=== PATIENT | female | born 1970 | race Caucasian/White ===

== ENCOUNTER → 2016-11-01 | Outpatient (CLI) | payer OTHER ==
[~2016-11-01] MED LIST: ASPI-390 PO; CLR10 PO; OPTIRAY 320 IV PRN; PHEN-601 PO
--- NOTE | 2016-11-01 15:49 | DIAGNOSTIC IMAGING REPORT ---
ABD/PELVIS IV AND ORAL CONT CLINICAL HISTORY: 46 years-old Female presenting with BREAST CANCER. TECHNIQUE: Multidetector CT of the abdomen and pelvis was performed after the administration of oral and intravenous contrast. IV contrast: 120 mL of Optiray 320. A dose lowering technique was used consistent with the principles of ALARA (as low as reasonably achievable). COMPARISON: None. CT DOSE (mGy.cm): The estimated cumulative dose is 1496.81 inclusive of the chest CT. FINDINGS: Dewatering Filtering Supervisor topogram: Right internal jugular Mediport noted. Lung bases: Minimal subpleural reticulation in the dependent lower lobes. Heart size normal. No pericardial or pleural effusion. Liver: Normal morphology. Punctate hypodensity in the right hepatic lobe (series 5 image 26), too small to characterize but likely cyst. No suspicious liver lesion. Patent hepatic vasculature. Biliary: No intrahepatic or extrahepatic biliary ductal dilatation. Normal gallbladder. Pancreas: Normal. Spleen: Normal. Splenule noted. Adrenal glands: Normal. Kidneys and ureters: Cortical defect at the lateral interpolar region of the right kidney, possibly postsurgical or from prior infarct, infection, or trauma. No renal calculus. No hydronephrosis. Ureters normal. Gastrointestinal tract: Normal. No bowel obstruction. Peritoneal cavity: No free fluid or intraperitoneal gas. Bladder: Incompletely evaluated secondary to underdistention. Pelvic organs: Uterus with multiple the both in cysts in the cervix. Ovaries normal. Vasculature: Atherosclerosis of the normal caliber abdominal aorta. IVC patent. Lymph nodes: No enlarged lymph nodes in the abdomen or pelvis. Abdominal wall: Diastases of the abdominis rectus. Small fat-containing umbilical hernia. Musculoskeletal: Anterolisthesis of L5 on S1 secondary to bilateral pars defects of L5. No destructive osseous lesion. IMPRESSION: 1. No acute intra-abdominal pathology. No evidence of metastatic disease in the abdomen or pelvis. Electronically signed by: Leonel Erazo M.D. 11/01/2016 3:48 PM Dictated Date/Time: 11/01/2016 3:42 PM
--- NOTE | 2016-11-02 07:29 | DIAGNOSTIC IMAGING REPORT ---
CT OF THE CHEST WITH IV CONTRAST CLINICAL HISTORY: Breast cancer. COMPARISON STUDY: No previous studies for comparison. TECHNIQUE: Following IV administration of 120 mL of Optiray-320, helical axial images of the chest were obtained. Sagittal and coronal reconstructions were viewed as well as maximal intensity projections on an independent 3-D workstation. A dose lowering technique was utilized adhering to the principles of ALARA. CT DOSE: 1496.81 mGycm FINDINGS: No enlarged axillary, mediastinal or hilar lymph nodes are present. The size of the heart is normal. There is no pericardial effusion. The patient is status post left mastectomy. No abnormalities are identified within the mastectomy bed. There is no pneumothorax or pleural effusion. Note is made of an irregular 3.2 x 1.7 cm right lower lobe irregular opacity with volume loss and architectural distortion. 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 No suspicious osseous lesions are present. The abdomen and pelvis will be reported separately. IMPRESSION: 1. No thoracic lymphadenopathy. Expected findings following left mastectomy. 2. 3.2 x 1.7 cm irregular right lower lobe opacity with volume loss and architectural distortion. This finding is indeterminate and correlation with prior imaging studies, if available, would be of benefit. Metastatic disease is considered very unlikely. This could reflect an infectious process, atelectasis or a primary lung neoplasm. In the absence of prior imaging studies, a follow-up chest CT in 3 months is recommended. Electronically signed by: Fernando Stein M.D. 11/02/2016 7:27 AM Dictated Date/Time: 11/01/2016 3:45 PM
== END | disposition home or self-care (01) ==
LOC: C.CTS 13:28
PROVIDERS: ATTEND Internal Medicine Hematology & Oncology
DX: C50.919 Malignant neoplasm of unspecified site of unspecified female breast (principal)

== ENCOUNTER → 2016-11-22 | Outpatient (CLI) | payer OTHER ==
[2016-11-21 15:51] VITALS: Ht 152.4 cm; Wt 93.2 kg
[~2016-11-22] VITALS: Ht 152.4 cm; Wt 93.2 kg
[~2016-11-22] MED LIST changes: +LACTATED RINGER'S 1000ML 1,000 ML IV SCH; -OPTIRAY 320 IV PRN
== END | disposition home or self-care (01) ==
LOC: C.CPL 08:00 → EDSTATUS 11-29 12:00
PROVIDERS: ATTEND Surgery
DX: Z01.810 Encounter for preprocedural cardiovascular examination (principal); Z01.812 Encounter for preprocedural laboratory examination; R94.31 Abnormal electrocardiogram [ECG] [EKG]

== ENCOUNTER → 2016-12-03 | Outpatient (CLI) | payer OTHER ==
[~2016-12-03] MED LIST changes: -LACTATED RINGER'S 1000ML 1,000 ML IV SCH
--- NOTE | 2016-12-03 10:08 | DIAGNOSTIC IMAGING REPORT ---
PET/CT SKULL-THIGH CLINICAL HISTORY: PULMONARY NODULE history of breast carcinoma and renal cell carcinoma COMPARISON STUDY: Chest CT dated 11/01/2016 FINDINGS: The patient was injected with 15.2 mCi of F 18 labeled FDG. Following the standard induction phase, PET/CT scanning is performed from the skull base to the upper thigh region. Within the neck, there is mild asymmetric tonsillar activity, a finding of questionable clinical significance. There is a focus of minimal increased FDG activity with thin the right posterior triangle. There is no corresponding CT nodule. Within the chest, there is no pathologic anastasia activity. There are postsurgical changes of a left mastectomy. There is a 37 mm right infrahilar airspace opacity. This remain similar in appearance to the prior October CT scan. This focus is not particularly FDG avid with SUV maximum of 2.0. Within the abdomen there is physiologic urinary tract and bowel activity. There is no pathologic adrenal gland activity. There is no pathologic hepatic activity. There is no pathologic anastasia activity. There is no pathologic skeletal activity. There is nonspecific endometrial activity which can be physiologic. Correlation with pelvic ultrasonography could be obtained if deemed clinically appropriate IMPRESSION: 1. Persistent 37 mm right infrahilar pulmonary airspace opacity. FDG uptake does not exceed background 2. No evidence of pathologic anastasia activity 3. Nonspecific endometrial uptake which potentially is physiologic Electronically signed by: Robert Juares M.D. 12/03/2016 10:07 AM Dictated Date/Time: 12/03/2016 9:52 AM
== END | disposition home or self-care (01) ==
LOC: C.PET 07:23
PROVIDERS: ATTEND Surgery
DX: C50.919 Malignant neoplasm of unspecified site of unspecified female breast (principal)

== ENCOUNTER → 2017-04-09 | Outpatient (CLI) | payer OTHER ==
[~2017-04-09] MED LIST changes: +CEPH500C2 PO; +OPTIRAY 320 IV PRN
--- NOTE | 2017-04-09 13:37 | DIAGNOSTIC IMAGING REPORT ---
CT OF THE CHEST WITH IV CONTRAST CLINICAL HISTORY: Breast cancer. COMPARISON STUDY: Chest CT November 01, 2016 and PET/CT December 03, 2016. TECHNIQUE: Following IV administration of 119 mL of Optiray-320, helical axial images of the chest were obtained. Sagittal and coronal reconstructions were viewed as well as maximal intensity projections on an independent 3-D workstation. A dose lowering technique was utilized adhering to the principles of ALARA. CT DOSE: 567.80 mGycm FINDINGS: No enlarged axillary, mediastinal or hilar lymph nodes are noted. The patient is status post left mastectomy. A right internal jugular Tbzjfp-k-Lmso is in place. The size of the heart is normal and there is no pericardial effusion. There is no consolidation to suggest pneumonia. An irregular 2.9 x 1.7 cm right lower lobe opacity with volume loss is similar to exam of November 01, 2016 and PET/CT of December 03, 2016. No definite change is noted since that exam. No additional suspicious findings within the lungs are noted. There are no suspicious osseous lesions. No pneumothorax or pleural effusion is present. Visualized portions of the upper abdomen are unremarkable. IMPRESSION: 1. No significant change in the 2.9 x 1.7 cm irregular lower lobe opacity with volume loss and architectural distortion since initial CT of November 01, 2016. Despite stability, a neoplasm such as lung adenocarcinoma is the diagnosis of exclusion. Scarring could appear similar. The appearance is not typical for metastatic disease. If not already performed, consideration could be given to further evaluation with bronchoscopy for tissue sampling. 2. Status post left mastectomy. No thoracic lymphadenopathy. Electronically signed by: Fernando Stein M.D. 04/09/2017 1:36 PM Dictated Date/Time: 04/09/2017 1:16 PM
== END | disposition home or self-care (01) ==
LOC: C.CTS 12:53
PROVIDERS: ATTEND Internal Medicine Hematology & Oncology
DX: C50.912 Malignant neoplasm of unspecified site of left female breast (principal); Z90.12 Acquired absence of left breast and nipple

== ENCOUNTER 2017-04-25 14:16 | Emergency (ER) | payer OTHER ==
[~2017-04-25] VITALS: Ht 152.4 cm; Wt 94.0 kg
[~2017-04-25 14:16] MED LIST changes: -ASPI-390 PO; -CEPH500C2 PO; -CLR10 PO; -OPTIRAY 320 IV PRN
[2017-04-25 14:28] VITALS: TEMP 37; Ht 152.4 cm; Wt 94.0 kg
--- NOTE | 2017-04-25 15:15 | DIAGNOSTIC IMAGING REPORT ---
L TOE(S) MIN 2 VIEWS CLINICAL HISTORY: left great toe injury trauma. Pain. COMPARISON: None. DISCUSSION: The bones and joint spaces appear intact. There is no evidence of fracture, dislocation or bony disease. Moderate soft tissue edematous change about the distal phalanx of left great toe. Possible tiny cortical avulsion base distal phalanx. IMPRESSION: 1. Soft tissue edema about the distal phalanx left great toe. 2. Tiny cortical avulsion base distal phalanx seen only on the AP projection. The above report was generated using voice recognition software. It may contain grammatical, syntax or spelling errors. Electronically signed by: Matthew Mejía M.D. 04/25/2017 3:14 PM Dictated Date/Time: 04/25/2017 3:12 PM
--- NOTE | 2017-04-25 15:27 | EMERGENCY ROOM VISIT NOTE ---
ED Visit Note First contact with patient: 14:41 CHIEF COMPLAINT: Left great toe injury HISTORY OF PRESENT ILLNESS: This 47-year-old female presents the ER with chief complaint of left toe injury. The patient states last night she stubbed her toe and now states that it hurts. The patient states that she does have an abnormal toenail there since it fell off when she had chemotherapy several years ago. She states it does not grow normally. She states the toenail is very curved. REVIEW OF SYSTEMS: 6 system review was performed and was negative unless stated otherwise in history of present illness. PMH: The patient is healthy; breast, lung and kidney cancer, appendectomy, mastectomy, SOCIAL HISTORY: Patient lives alone. The patient denies any tobacco or alcohol use. PHYSICAL EXAM: Vital Signs: Were reviewed Reviewed Nurse's notes. GENERAL: 47- year-old white female appears in no acute distress. MENTAL Status: Alert and oriented 3. LEFT GREAT TOE: No gross bony deformity noted. There is erythema noted over the distal phalanx. She has tenderness to palpation over this area. The toenail is very convex and second distally. She is tender to palpation over the lateral border of the nail .there is no purulent drainage. EMERGENCY DEPARTMENT COURSE: The patient was evaluated. X-ray of the left great toe was ordered interpreted by the radiologist and myself. DIAGNOSTICS: Patient Name: TRACI BALDERAS Unit Number: [id number] Dictated: 04/25/171511 Transcribed: 04/25/17 151 MS Printed Date/Time: [~ rep prt dt]/[~ rep prt tm] [~ rep ct labl] - [~ rep ct ivnm] [facility] Radiology Department [place], [place] [id number] Dictated: 04/25/171511 Transcribed: 04/25/17 1512 MS Printed Date/Time: [~ rep prt dt]/[~ rep prt tm] [~ rep ct labl] - [~ rep ct ivnm] [~ rep ct add3]] L TOE(S) MIN 2 VIEWS CLINICAL HISTORY: left great toe injury trauma. Pain. COMPARISON: None. DISCUSSION: The bones and joint spaces appear intact. There is no evidence of fracture, dislocation or bony disease. Moderate soft tissue edematous change about the distal phalanx of left great toe. Possible tiny cortical avulsion base distal phalanx. IMPRESSION: 1. Soft tissue edema about the distal phalanx left great toe. 2. Tiny cortical avulsion base distal phalanx seen only on the AP projection. The above report was generated using voice recognition software. It may contain grammatical, syntax or spelling errors. Electronically signed by: Matthew Mejía M.D. 04/25/2017 3:14 PM Dictated Date/Time: 04/25/2017 3:12 PM The status of this report is Signed. Draft = Not yet reviewed or approved by Radiologist. Signed = Reviewed and approved by Radiologist. <AttendingPhy></AttendingPhy> <FamilyPhy>No Doctor, Assigned</FamilyPhy> < PrimaryPhy>No Doctor, Assigned</PrimaryPhy> <UnitNumber>[id number]</UnitNumber> <VisitNumber>[id number]</VisitNumber> <PatientName>TRACI BALDERAS</ PatientName> <DateOfBirth>1970</DateOfBirth> <Location>[facility]</Location> < ServiceDate>04/25/17</ServiceDate> <MNE>ESINDI</MNE> <OrderingPhy>Nella Mejía PA-C</OrderingPhy> <OrderingPhyMNE>f rep ord dr goldberg</OrderingPhyMNE> < DictatingPhyMNE>f rep dict dr goldberg</DictatingPhyMNE> <CCListMNE>f rep ct mne</ CCListMNE> <AdmittingPhyMNE>f pt admit dr goldberg</AdmittingPhyMNE> <AttendingPhyMNE >f pt attend dr goldberg</AttendingPhyMNE> <ConsultingPhyMNE>f pt consult dr goldberg</ConsultingPhyMNE> <FamilyPhyMNE>f pt fam dr goldberg</FamilyPhyMNE> <OtherPhyMNE>f pt other dr goldberg</OtherPhyMNE> < PrimaryPhyMNE>f pt prim care dr goldberg</PrimaryPhyMNE> <ReferringPhyMNE>f pt referring dr goldberg</ReferringPhyMNE> The patient was informed of the findings. The patient was placed in a postop shoe. The patient was discharged home in stable condition. DIAGNOSIS: Avulsion fracture left right toe/early paronychia DISCHARGE INSTRUCTIONS & TREATMENT: Ibuprofen 600 mg every 6 hours with food for pain. Take Keflex as prescribed. Make sure you try to elevate the corner of that nail so it doesn't grow into the skin. Wear postop shoe for 2 weeks. Then try normal shoes. If it is still bothersome return to the postop shoe for an additional 2 weeks. If symptoms persist or worsen, follow-up with your family doctor. Current/Historical Medications Scheduled PRN Sdjdpxw-Hcaskhehdsozm-Mxmobbqe (Excedrin Migraine), 2 TABS PO DAILY PRN for Migraine Loratadine (Claritin), 10 MG PO QAM PRN for Allergy Symptoms Allergies Coded Allergies: NO KNOWN DRUG ALLERGIES (Verified Allergy, Unknown, NKDA, 11/21/16) Uncoded Allergies: SEASONAL (Allergy, Unknown, SNEEZING, RUNNY NOSE, 11/21/16) Vital Signs Date Time Temp Pulse Resp B/P (MAP) Pulse Ox O2 Delivery O2 Flow Rate FiO2 04/25/17 14:28 37.0 77 18 149/91 96 Room Air Departure Information Referrals No Doctor, Assigned (PCP) Patient Instructions [facility]
[2017-04-25] MEDS ORDERED: CEPH500C2 PO (15:29)
[2017-04-25 15:38] VITALS: BP 111/81; PULSE 85; O2SAT 97
[2017-04-25] MEDS ORDERED: CLR10 PO (16:07)
[2017-04-25] MEDS ORDERED: ASPI-390 PO (16:07)
== END 2017-04-25 15:39 | disposition home or self-care (01) ==
LOC: C.EDB 14:18 → C.EDD 15:39
DX: S92.425A Nondisplaced fracture of distal phalanx of left great toe, initial encounter for closed fracture (principal); W22.09XA Striking against other stationary object, initial encounter; Z90.10 Acquired absence of unspecified breast and nipple; Z85.3 Personal history of malignant neoplasm of breast; Z85.118 Personal history of other malignant neoplasm of bronchus and lung; Z85.528 Personal history of other malignant neoplasm of kidney

== ENCOUNTER → 2017-07-09 | Outpatient (CLI) | payer OTHER ==
[~2017-07-09] MED LIST changes: +ASPI-390 PO; +CEPH500C2 PO; +CLR10 PO; +OPTIRAY 320 IV PRN; -PHEN-601 PO
--- NOTE | 2017-07-09 10:50 | DIAGNOSTIC IMAGING REPORT ---
CT SCAN OF THE CHEST WITH IV CONTRAST CLINICAL HISTORY: Breast cancer. COMPARISON STUDY: Chest CT scans dated 04/09/2017 and 11/01/2016. TECHNIQUE: Following the IV administration of 94 cc of Optiray 320, CT scan of the thorax was performed from the thoracic inlet to the upper abdomen. Images are reviewed in the axial, sagittal, and coronal planes. IV contrast was administered without complication. A dose lowering technique was utilized adhering to the principles of ALARA. CT DOSE: 568.68 mGy.cm FINDINGS: Thyroid: Imaged portions of the thyroid gland are normal in size and attenuation. Thoracic aorta: The thoracic aorta is normal in caliber and demonstrates 4-vessel variant arch anatomy. No dissection is seen. A right internal jugular central venous infusion port is in place. Pulmonary vasculature: The pulmonary trunk is normal in caliber. There are no filling defects identified in the central pulmonary vessels to indicate pulmonary embolus. Note that this examination was not protocoled for evaluation of the pulmonary arteries. Heart: The heart is top normal in size and without pericardial effusion. Lungs and pleural spaces: Mild emphysematous change is noted. No airspace consolidation or pleural effusion is identified. The trachea and central airways are clear. Again seen is an irregular right infrahilar pulmonary lesion which measures 3.6 x 1.9 cm as seen on image #152. There is surrounding architectural distortion/volume loss. No new pulmonary lesion is identified. Mediastinum: There is no mediastinal lymphadenopathy. Jodi: Clear. Axillae: There is no axillary lymphadenopathy. Upper abdomen: Partially visualized upper abdominal viscera is within normal limits. Skeletal structures: No lytic or blastic bony lesions are seen. Soft tissues: The left breast is surgically absent. IMPRESSION: 1. There is no convincing evidence of intrathoracic metastatic disease. 2. There is unchanged appearance of a 3.6 x 1.9 cm irregular soft tissue lesion in the right infrahilar region. Although this could potentially represent scar, pulmonary neoplasm remains the diagnosis of exclusion. Bronchoscopy could be considered for further assessment. At a minimum, continued CT follow-up is recommended. 3. No new pulmonary lesion is identified. 4. Mild emphysema. Electronically signed by: Jaspal Jones M.D. 07/09/2017 10:49 AM Dictated Date/Time: 07/09/2017 10:40 AM
== END | disposition home or self-care (01) ==
LOC: C.CTS 09:40
PROVIDERS: ATTEND Internal Medicine Hematology & Oncology
DX: C50.912 Malignant neoplasm of unspecified site of left female breast (principal)

== ENCOUNTER → 2017-08-21 | Day surgery (SDC) | payer OTHER ==
[2017-08-09 13:39] VITALS: BMI 40.0
[~2017-08-21] VITALS: Ht 152.4 cm; Wt 93.2 kg
[~2017-08-21] MED LIST changes: +ATROPINE SULFATE 0.1 MG/ML 5ML SYR IV PRN; +BUPIVACAINE 0.5 % 5 MG/1 ML MPF 30ML VIAL ONE; +CEFAZOLIN 2000MG IV PUSH 15 ML IV SCH; -CEPH500C2 PO; +ERGO500037 PO; +EpHEDrine SULFATE 50MG/5ML SYR ONE; +EpHEDrine SULFATE INJ 50 MG/ML AMP IV PRN; +FENTANYL CITRATE INJ 50 MCG/1 ML 2 ML VIAL IV PRN; +FENTANYL CITRATE INJ 50 MCG/1 ML 2 ML VIAL ONE; +GLYCOPYRROLATE INJ 0.2 MG/ML VIAL ONE; +KETOROLAC TROMETHAMINE 30 MG/ML VIAL ONE; +LACTATED RINGER'S 1000ML 1,000 ML IV SCH; +LIDOCAINE HCL 2% 2 ML VIAL (20MG/ML) ONE; +LIDOCAINE/EPINEPHRINE 1% 20 ML VIAL ONE; +MIDAZOLAM HCL 1 MG/ML 2ML VIAL ONE; +NEOSTIGMINE METHYLSULFATE 5 MG/5 ML SYR ONE; +ONDANSETRON INJ 2 MG/ML 2 ML VIAL IV PRN; +ONDANSETRON INJ 2 MG/ML 2 ML VIAL ONE; -OPTIRAY 320 IV PRN; +OXYCODONE/ACETAMINOPHEN 5-325 TAB PO PRN; +PROPOFOL IV EMULSION 10 MG/ML 20 ML VIAL ONE; +ROCURONIUM BROMIDE 10 MG/ML 5 ML VIAL ONE; +SODIUM CHLORIDE 0.9% 1000ML 1,000 ML IV SCH
[2017-08-21 07:13] VITALS: BP 119/79; PULSE 75; TEMP 36.6; O2SAT 98; Ht 152.4 cm; Wt 93.2 kg
--- NOTE | 2017-08-21 08:59 | History & Physical Bridge Note ---
H&P Re-Evaluation Bridge Note: I have examined the patient, reviewed the History & Physical and in the interval since the performance of the History & Physical I have noted the following changes of clinical significance: No changes noted
--- NOTE | 2017-08-21 09:48 | Discharge Instructions ---
Discharge Instructions Date of Service August 21, 2017. Visit Reason for Visit: Breast Cancer, Port-A-Cath In Place Discharge Discharge Diagnosis / Problem: A-port removal Discharge Goals Goal(s): Therapeutic intervention Activity Recommendations Activity Limitations: resume your previous activity Shower/Bathe: no limitations Driving or Machine Use: resume 1 day after discharge Anesthesia . Post Anesthesia Instructions: If you have had General Anesthesia or IV Sedation: * Do not drive today. * Resume driving when surgeon permits. * Do not make important decisions or sign legal documents today. * Call surgeon for: 1. Temperature elevations greater than 101 degrees F. 2. Uncontrollable pain. 3. Excessive bleeding. 4. Persistent nausea and vomiting. 5. Medication intolerance (nausea, vomiting or rash). * For nausea and vomiting use only clear liquids such as: tea, soda, bouillon until nausea subsides, then gradually increase diet as tolerated. * If you have any concerns or questions, call your surgeon's office. If physician is unavailable and it is an emergency, call 911 or go to the nearest emergency room. . Instructions / Follow-Up Instructions / Follow-Up Dr. Son in 1-2 weeks as planned or call the office to schedule, [phone] You may take Tylenol OTC or ibuprofen 600 mg every 6 hours as needed for pain Diet Recommendations Recommended Home Diet: no limitations Pending Studies Studies pending at discharge: no Medical Emergencies . Who to Call and When: Medical Emergencies: If at any time you feel your situation is an emergency, please call 911 immediately. . Non-Emergent Contact Non-Emergency issues call your: Surgeon Call Non-Emergent contact if: you have a fever, temperature is above 101.5, your pain is not controlled, wound has increased redness, wound has increased pain . . "Provider Documentation" section prepared by Benjmain Villalba. .
--- NOTE | 2017-08-21 09:53 | [facility] Post Operative Brief Note ---
Immediate Operative Summary Operative Date August 21, 2017. Pre-Operative Diagnosis BREAST CANCER Post-Operative Diagnosis Breast Cancer Procedure(s) Performed Removal of A-Port, Right Chest Surgeon Dr. Son Computational Linguist Surgeon(s) none Estimated Blood Loss 1.5mL Findings Consistent with Post-Op Diagnosis Specimens A: Removed A-Port Drains None Anesthesia Type MAC Complication(s) none Disposition Accompanied Pt To Recover: no Disposition: Recovery Room / PACU
--- NOTE | 2017-08-21 09:57 | [facility] Operative Report ---
Operative Report Operative Date August 21, 2017. Pre-Operative Diagnosis BREAST CANCER, unwanted port Post-Operative Diagnosis Same Procedure(s) Performed Port removal Surgeon Dr. Son Stockbroking Dealer Surgeon(s) none Estimated Blood Loss 1.5mL Findings Port removed, capsule excised, hemostasis good Specimens A: Removed A-Port Drains None Anesthesia MAC/local Complication(s) None Disposition Recovery Room / PACU Indications 47-year-old female with history of breast cancer status post chemotherapy, she has been disease free for 5 years and is desiring port removal. Plan for port removal in the operating room. The risks of the procedure were discussed, all questions were answered, and the patient agreed to proceed with surgery as planned. Description of Procedure The patient was properly identified, consented, and taken to the operating room where she was placed in the supine position. Monitored anesthesia care was induced. SCDs and a safety belt were placed. Preoperative antibiotics were administered. The patient's right chest and neck were prepped and draped in the standard sterile fashion. Surgical timeout was performed and all parties were in agreement that this was the correct patient and procedure to be performed and we continued as planned. Local anesthetic was injected along the skin incision. An elliptical incision was made to incorporate the old scar overlying the port and deepened down through the subcutaneous tissue with electrocautery. The port was circumferentially dissected, and removed intact. The capsule was excised. Pressure was held the insertion point of the jugular vein for 2 minutes and hemostasis was good. The wound was irrigated and hemostasis was confirmed. The skin was closed with interrupted 3-0 Vicryl deep dermal sutures, followed by 4-0 Monocryl running subcuticular suture. Dermabond was placed over the wound. The patient was extubated in the operating room and taken to the PACU where she recovered without apparent incident. All sponge, instrument and needle counts were correct at the conclusion of the procedure. The patient tolerated the procedure well. I attest to the content of the Intraoperative Record and any orders documented therein. Any exceptions are noted below.
--- NOTE | 2017-08-21 10:16 | Anesthesiology Progress Note ---
Anesthesia Post Op Note Date & Time August 21, 2017 at 10:16 Vital Signs Pain Intensity: 0 Vital Signs Past 12 Hours Date Time Temp Pulse Resp B/P (MAP) Pulse Ox O2 Delivery O2 Flow Rate FiO2 08/21/17 10:05 65 16 110/76 98 Oxymask 3 08/21/17 09:56 36.2 76 12 106/77 94 Oxymask 3 08/21/17 07:13 36.6 75 18 119/79 (92) 98 Room Air Notes Mental Status: alert / awake / arousable, participated in evaluation Pt Amnestic to Procedure: Yes Nausea / Vomiting: adequately controlled Pain: adequately controlled Airway Patency, RR, SpO2: stable & adequate BP & HR: stable & adequate Hydration State: stable & adequate Anesthetic Complications: no major complications apparent
[2017-08-21 10:27] VITALS: BP 137/78; PULSE 64; TEMP 36.5; O2SAT 100
[2017-08-21 11:03] VITALS: BP 119/73; PULSE 67; TEMP 36.5; O2SAT 100
== END | disposition home or self-care (01) ==
LOC: C.ACU 06:38
PROVIDERS: ATTEND Surgery
DX: Z45.2 Encounter for adjustment and management of vascular access device (principal); C50.919 Malignant neoplasm of unspecified site of unspecified female breast; Z87.891 Personal history of nicotine dependence; E66.9 Obesity, unspecified; Z68.41 Body mass index [BMI] 40.0-44.9, adult; Z98.51 Tubal ligation status; Z90.89 Acquired absence of other organs; Z90.10 Acquired absence of unspecified breast and nipple; Z80.9 Family history of malignant neoplasm, unspecified; Z82.49 Family history of ischemic heart disease and other diseases of the circulatory system